=== PATIENT | female | born 1965 | race Asian ===

== ENCOUNTER 2016-04-27 07:55 | Emergency (ER) | payer OTHER ==
[2016-04-27 08:02] VITALS: TEMP 97.4; BMI 23.3
--- NOTE | 2016-04-27 08:21 | PDOC ---
History of Present Illness - General Chief Complaint: Lightheaded Stated Complaint: DIZZINESS Time Seen by Provider: 04/27/16 08:00 - History of Present Illness Initial Comments: 04/27/16 09:02 51 old female with a past medical history of asthma, chronic anemia-iron deficiency, and prior hepatitis B, with viral cure Patient has had a few weeks of intermittent nausea and malaise, as well as some lightheadedness off and on, which she says is worse after she eats She did see her primary care physician, Dr. Trevino, last week, and had lab work showing mild microcytosis, iron deficiency, and otherwise normal lab work She also had a right upper quadrant ultrasound last week, showing a normal liver , a normal pancreas, and a normal gallbladder Her urine was also normal She says that she has seen her safety counselor, as well as her primary care physician, and her CONTRACTS MANAGER She is perimenopausal, but still menstruating Today, she awakened with vertigo, and nausea She states that this was associated with a few second episode of palpitations She states that she felt like the room was spinning, and she had to sit back down She states that she is feeling better at this time but still with a little bit of vertigo She denies any vomiting or diarrhea She denies any shortness of breath She denies any recent travel, and does not take hormone supplements or OCPs She denies any recent head injury She denies any recent intercurrent illnesses, fevers, or chills She denies any earache She denies any other complaints at this time, and the remainder of the review of systems is negative Past History - Past Medical History Allergies/Adverse Reactions: Allergies Allergy/AdvReac Type Severity Reaction Status Date / Time Penicillins Allergy Hives Verified 04/27/16 07:56 Home Medications: Ambulatory Orders Albuterol Sulfate Inhaler - [Ventolin HFA Inhaler -] 2 inh IH QID 01/05/12 Montelukast Na [Singulair -] 0 mg PO HS 01/05/12 Salmeterol/Fluticasone [Advair 100Mg/50Mg] 0 disk.w IH BID 01/05/12 Cholecalciferol (Vitamin D3) [Vitamin D3] 5,000 unit PO DAILY capsule 08/18/15 Ferrous Gluconate [Iron] 256 mg PO TID #90 tablet 04/27/16 Meclizine HCl [Antivert -] 25 mg PO TID #21 tablet 04/27/16 Asthma: Yes - Psycho/Social/Smoking Cessation Hx Anxiety: No Suicidal Ideation: No Smoking Status: No Smoking History: Never smoked Have you smoked in the past 12 months: No Number of Cigarettes Smoked Daily: 0 Information on smoking cessation initiated: No Hx Alcohol Use: No Drug/Substance Use Hx: No Substance Use Type: None Hx Substance Use Treatment: No Review of Systems - Review of Systems Able to Perform ROS?: Yes Comments:: 04/27/16 09:05 12 point review of systems is as per history of present illness and otherwise negative *Physical Exam - Vital Signs Last Vital Signs Temp Pulse Resp BP Pulse Ox 97.4 F L 59 L 18 104/54 100 04/27/16 07:56 04/27/16 07:56 04/27/16 07:56 04/27/16 07:56 04/27/16 07:56 - Physical Exam Comments: 04/27/16 09:06 Physical exam Last Vital Signs Temp Pulse Resp BP Pulse Ox 97.4 F L 65 18 104/54 99 04/27/16 07:56 04/27/16 08:50 04/27/16 08:50 04/27/16 07:56 04/27/16 08:50 GENERAL: The patient is awake, alert, and fully oriented, and in no apparent distress. HEAD: Normal with no signs of trauma. EYES: Pupils equal, round and reactive to light, extraocular movements intact, sclera anicteric, conjunctiva are normal. No nystagmus is noted at this time ENT: The TMs are obscured by cerumen bilaterally, nares patent, oropharynx clear without exudates. Moist mucous membranes. NECK: Normal range of motion, supple without lymphadenopathy, JVD, or masses. Rapid change in head position does not induce the symptoms at this time LUNGS: Breath sounds equal, clear to auscultation bilaterally. No wheezes, and no crackles. HEART: Regular rate and rhythm, normal S1 and S2 without murmur, rub or gallop. ABDOMEN: Soft, nontender, normoactive bowel sounds. No guarding, no rebound. No masses appreciated. EXTREMITIES: Normal range of motion, no edema. No clubbing or cyanosis. No cords, erythema, or tenderness. NEURO: Mental status: The patient is oriented x3. Cranial nerves: Cranial nerves II through XII are intact Motor: The upper extremities are 5 over 5 in all muscle groups. The lower extremities are 5 over 5 in all muscle groups. Sensation: Sensation is intact to light touch throughout. Cerebellar: Qhjxpl-zwlaox-gnny is normal in both upper extremities. Heel-knee- kiran is normal in both lower extremities. Gait: Normal. PSYCH: Normal mood, normal affect. SKIN: Warm, Dry, normal turgor, no rashes or lesions noted. ED Treatment Course - LABORATORY CBC & Chemistry Diagram: 04/27/16 08:48 04/27/16 08:48 Medical Decision Making - Medical Decision Making 04/27/16 08:21 EKG Normal sinus rhythm 59, normal axis Normal AV and IV conduction time Normal QTC Some movement artifact is noted Nonspecific ST-T waves when compared to the EKG of 09/08/12 Today's EKG is unchanged from the prior EKG 04/27/16 09:07 51-year-old female with a few weeks of vague recent symptoms, who has seen her primary care doctor and had an initial workup, Presents with new onset vertigo this morning, which is now just about gone SHe states that her mother gets vertigo quite a bit, but she has never had it herself 04/27/16 11:23 Laboratory Results - last 24 hr 04/27/16 04/27/16 04/27/16 08:40 08:48 08:48 WBC 5.4 RBC 4.45 Hgb 10.4 L Hct 33.4 MCV 75.1 L MCHC 31.3 L RDW 16.9 H Plt Count 314 MPV 7.9 Sodium 138 Potassium 3.7 Chloride 109 H Carbon Dioxide 22 Anion Gap 7 L BUN 9 D Creatinine 0.6 Creat Clearance w eGFR > 60 Random Glucose 90 Calcium 8.3 L Magnesium 2.1 Total Bilirubin < 0.3 AST 27 ALT 21 Alkaline Phosphatase 57 Creatine Kinase 82 Troponin I < 0.03 L Total Protein 6.2 L Albumin 3.4 L TSH Urine HCG, Qual 04/27/16 04/27/16 09:11 Unknown WBC RBC Hgb Hct MCV MCHC RDW Plt Count MPV Sodium Potassium Chloride Carbon Dioxide Anion Gap BUN Creatinine Creat Clearance w eGFR Random Glucose Calcium Magnesium Total Bilirubin AST ALT Alkaline Phosphatase Creatine Kinase Troponin I Total Protein Albumin TSH 0.46 D Urine HCG, Qual Negative 04/27/16 11:29 pt is a little more anemic than her prior lab work, but has not been taking her iron 04/27/16 11:37 Feeling much better after 1 L of normal saline and meclizine I spoke with the patient and stressed the importance of taking her iron, as she is becoming more anemic Case and all results discussed with Dr. Valdez, for Dr. Trevino Agrees with above-will follow up *DC/Admit/Observation/Transfer Diagnosis at time of Disposition: Vertigo, Anemia, Weakness - Discharge Dispostion Disposition: HOME Condition at time of disposition: Improved - Referrals Referrals: Riley Lopez MD [Staff Physician] - - Patient Instructions Printed Discharge Instructions: Vertigo, DI for Vertigo, Iron-Deficiency Anemia Additional Instructions: Antivert (meclizine)-one pill every 8 hours for the next few days Please take your iron pill at least once or twice a day, as you are becoming more anemic Increase fluid intake and rest Followup with your primary care physician in 24-48 hours Return immediately if you worsen in any way Take your medications as directed - Post Discharge Activity Work/School Note: Back to Work
[2016-04-27 09:00] LABS: MCH 23.5 pg (25.7-33.7); MCHC 31.3 g/dl (32.0-36.0); MEAN CELL VOLUME 75.1 fl (80-96); MEAN PLT VOLUME 7.9 fl (7.5-11.1); PLATELET COUNT 314 K/MM3 (134-434); RDW 16.9 % (11.6-15.6); WHITE BLOOD COUNT 5.4 K/mm3 (4.0-10.0)
[2016-04-27] MEDS ORDERED: MECLIZINE HCL 25 MG TABLET (FP) PO ONE (09:09)
[2016-04-27 09:19] LABS: CPK(DFH) 82 IU/L (26-140)
[2016-04-27 09:20] LABS: ALBUMIN 3.4 g/dl (3.5-5.0); ALK PHOS 57 U/L (32-92); ANION GAP 7 (8-16); CALCIUM 8.3 mg/dl (8.4-10.2); CO2 22 mmol/L (22-28); CREATININE 0.6 mg/dl (0.6-1.3); GLUCOSE,RANDOM 90 mg/dl (74-106); MAGNESIUM 2.1 mg/dL (1.8-2.4); SGOT/AST 27 U/L (10-42); SGPT/ALT 21 U/L (10-40); TOT PROT 6.2 g/dl (6.4-8.3)
[2016-04-27] MEDS ORDERED: MECLIZINE HCL 25 MG TABLET (FP) ONE (09:20)
[2016-04-27 09:24] LABS: BILIRUBIN,TOTAL < 0.3 mg/dl (0.2-1.0)
[2016-04-27] MEDS ORDERED: SODIUM CHLORIDE 1,000 ML IV SCH (10:00)
[2016-04-27 11:03] LABS: TROPONIN I (DFP) < 0.03 ng/ml (0.03-0.50)
--- NOTE | 2016-04-27 11:32 | EKG ---
Test Reason : Blood Pressure : / mmHG Vent. Rate : 059 BPM Atrial Rate : 059 BPM P-R Int : 172 ms QRS Dur : 076 ms QT Int : 436 ms P-R-T Axes : 073 060 058 degrees QTc Int : 431 ms SINUS BRADYCARDIA NONSPECIFIC T WAVE ABNORMALITY ABNORMAL ECG NO PREVIOUS ECGS AVAILABLE Confirmed by KOFFI HADLEY, ANDRES ([id number]) on 04/27/2016 11:32:27 AM Referred By: GRAYSON Confirmed By:ANDRES RAIN MD
[2016-04-27 11:41] VITALS: BP 108/59; PULSE 64
== END 2016-04-27 11:57 | disposition home or self-care (01) ==
LOC: FER 07:55
DX: R42 Dizziness and giddiness (principal); R53.1 Weakness; D50.9 Iron deficiency anemia, unspecified; B19.10 Unspecified viral hepatitis B without hepatic coma; J45.909 Unspecified asthma, uncomplicated
CPT/HCPCS: 36415; 80053; 82550; 83735; 84443; 84484; 84703; 85027; 93005; 99284-25

== ENCOUNTER 2016-05-04 08:11 | Day surgery (SDC) | payer OTHER ==
[2016-05-02 12:29] VITALS: BMI 23.3
[2016-05-04] MEDS ORDERED: PROPOFOL 20 ML ONE ×2 (09:45)
[2016-05-04] MEDS ORDERED: MIDAZOLAM HCL 2 MG/2 ML SINGLE DOSE VIAL ONE (09:45)
[2016-05-04] MEDS ORDERED: BUPIVACAINE HCL/EPINEPHRINE/PF 30 ML VIAL IJ ONE (10:04)
--- NOTE | 2016-05-04 11:06 | OP ---
Operative Note - Note: Operative Date: 05/04/16 Pre-Operative Diagnosis: right knee trochlea cartilage defect, MMT Operation: RKA, PMM, microfrature-femoral trochlea Post-Operative Diagnosis: Same as Pre-op Surgeon: Raj Khan Anesthesiologist/FINANCIAL OPERATIONS CLERK: Robert Harrell Anesthesia: General Operative Report Dictated: Yes
--- NOTE | 2016-05-04 11:07 | DS ---
Physical Examination Vital Signs: Vital Signs Temperature 97.7 F 05/04/16 08:33 Pulse Rate 81 05/04/16 08:33 Respiratory Rate 18 05/04/16 08:33 Blood Pressure 89/56 05/04/16 08:33 O2 Sat by Pulse Oximetry (%) 99 05/04/16 08:33 Discharge Summary Reason For Visit: OSTEOCHONDRAL DEFECT CHONDROMALACIA PATELLA RT KN Condition: Good - Instructions Diet, Activity, Other Instructions: Post Operative Instructions: Knee Arthroscopy Dr Raj Khan 1. Pain following an arthroscopy is variable. Some patients will have more pain than others. You have been provided with a prescription for medication that contains a narcotic. You are not allowed to drive while on this medication. You should NOT take Tylenol (Acetaminophen) when taking the pain medication ( it will result in an overdose). Feel free to take medications such as Ibuprofen or Naprosyn in addition to the pain medicine if you do not have any problems with the NSAID class of medications. 2. You should are allowed to remove the bandages and shower in 24 hours unless directed otherwise. You are not allowed to bathe or go swimming until the sutures are removed. Put band-aids on the sutures after your shower and do not put any creams or lotions over the incisions. 3. You are allowed to put all your weight on the leg and bend your knee, unless directed otherwise. 4. Apply ice to the knee for 15 min every hour or so. You may continue this for as many days as you like. 5. Please call the office to schedule a visit to have your sutures removed. 6. If for any reason you believe you may have an infection or are concerned, please feel free to call me. I can be reached through our office number 24 hours a day. 7. Please call our office with any questions; we will review the surgical findings during your post operative visit. Disposition: HOME - Home Medications Comprehensive Discharge Medication List: Ambulatory Orders Albuterol Sulfate Inhaler - [Ventolin Hfa Inhaler -] 2 inh PO Q6H PRN 05/02/16 Ascorbic Acid [Vitamin C -] 500 mg PO DAILY 05/02/16 Azelastine HCl 137 mcg NS PRN PRN 05/02/16 Cholecalciferol (Vitamin D3) [Vitamin D3] 2,000 unit PO DAILY 05/02/16 Evening [place] Oil [Evening [place]] 1,000 mg PO DAILY 05/02/16 Ferrous Gluconate [Fergon -] 324 mg PO TID 05/02/16 Fluticasone Prop 0.05% Nasal [Flonase -] 1 - 2 spray NS DAILY PRN 05/02/16 Montelukast Na [Singulair -] 10 mg PO HS 05/02/16 Multivitamins [Tab-A-Vit -] 1 tab PO DAILY 05/02/16 [place]-3/Dha/Epa/Fish Oil [[place] 3 500 Softgel] 1 each PO DAILY 05/02/16 Salmeterol/Fluticasone [Advair 100Mcg/50Mcg -] 1 inh IH BID 05/02/16 Vit C/Vit E/Lutein/Min/[place]-3 [Ocuvite Softgel] 1 each PO DAILY 05/02/16
[2016-05-04] MEDS ORDERED: oxyCODONE HCL 5 MG TABLET PO PRN ×2 (12:00)
[2016-05-04] MEDS ORDERED: LACTATED RINGERS SOLUTION 1,000 ML IV SCH (12:00)
[2016-05-04 12:10] VITALS: TEMP 97.5
[2016-05-04] MEDS ORDERED: PROMETHAZINE HCL 25 MG/1 ML VIAL ONE (12:32)
[2016-05-04] MEDS ORDERED: ONDANSETRON 4 MG/2 ML VIAL IVPUSH PRN (12:45)
[2016-05-04] MEDS ORDERED: PROMETHAZINE HCL 25 MG/1 ML VIAL IVPUSH ONE (13:00)
[2016-05-04 14:24] VITALS: BP 98/52; PULSE 58
--- NOTE | 2016-05-09 13:39 | PATH ---
Surgical Pathology Report Patient Name: SADE MELVIN [facility]. Rec. #: [id number] /Age/Gender: 1965 (Age: 51) / F Account: [id number] Location: [facility] AMBULATORY Taken: 05/04/2016 Received: 05/04/2016 Reported: 05/09/2016 Physicians: Raj Khan M.D. Specimen(s) Received RIGHT KNEE SHAVINGS Clinical History Osteochondral defect chondromalacia patella right knee Surgical procedure: Right knee arthroscopy, microfracture and pigmented villonodular synovitis excised Final Diagnosis KNEE, RIGHT, ARTHROSCOPIC SHAVINGS: FIBROSYNOVIAL TISSUE SHOWING CHRONIC INFLAMMATION AND REACTIVE CHANGES. (SEE NOTE) FRAGMENTS OF CARTILAGE. Note: No evidence of pigmented villonodular synovitis in this material. Electronically Signed Janis James M.D. Gross Description Received in formalin, labeled "right knee shavings," is a 2.4 x 2.0 x 0.3 cm. aggregate of dee-yellow soft tissue fragments. Entirely submitted in two cassettes. 05/04/201605/04/2016
== END 2016-05-04 14:35 | disposition home or self-care (01) ==
LOC: FASU 08:11 → MERGE 08:11 → FASU 14:35
PROVIDERS: ATTEND Orthopaedic Surgery
PROC: 0SBC4ZZ Excision of Right Knee Joint, Percutaneous Endoscopic Approach (ICD-10-PCS; principal; 2016-05-04 10:34)
DX: M94.8X8 Other specified disorders of cartilage, other site (principal); M65.88 Other synovitis and tenosynovitis, other site
CPT/HCPCS: 84703; 88304-TC; 94760

== ENCOUNTER 2016-08-10 22:45 | Emergency (ER) | payer OTHER ==
[2016-08-10 22:51] VITALS: BP 122/66; PULSE 63; TEMP 97.9; BMI 23.8
--- NOTE | 2016-08-10 23:22 | PDOC ---
History of Present Illness - General Chief Complaint: Pain Stated Complaint: PAIN Time Seen by Provider: 08/10/16 23:09 History Source: Patient Exam Limitations: No Limitations - History of Present Illness Initial Comments: 08/10/16 23:48 This is a 51-year-old female who is status post tooth extraction approximately 4 days ago. 2 days post tooth extraction patient developed pain in the area of where the tooth was extracted. Patient said she's had progressive pain now times the last 2 days. Patient is taking ibuprofen without relief. Patient did not follow up with her doctor. Patient is concerned that there may be an infection. PAST MEDICAL HISTORY: no significant history PAST SURGICAL HISTORY: no significant history FAMILY HISTORY: no pertinant history SOCIAL HISTORY: Pt lives with family and is employed. MEDICATIONS: reviewed ALLERGIES: As per nursing notes Review of Systems General: No fevers or chills, no weakness, no weight loss HEENT: No change in vision. No sore throat,. No ear pain, plus tooth pain CardioVascular: No chest pain or shortness of breath Respiratory:No cough, or wheezing. Gastrointestinal: no nausea, vomitting, diarrhea or constipation, No rectal bleeding Genitourinary: No dysuria, hematuria, or frequency Musculoskeletal: No joint or muscle pain or swelling Neurologic: No headache, vertigo, dizziness or loss of consciousness Psychiatric: nor depression Skin: No rashes or easy bruising Endocrine: no increased thirst or abnormal weight change Allergic: no skin or latex allergy All other systems reviewed and normal GENERAL: The patient is awake, alert, and fully oriented, in no acute distress. HEAD: Normal with no signs of trauma. Mouth: In the area where there was a extraction the clot has been dislodged and patient appears to have a dry socket There is no erythema to the surrounding area swelling or tenderness. There is no lymphadenopathy EYES: Pupils equal, round and reactive to light, extraocular movements intact, sclera anicteric, conjunctiva clear. EXTREMITIES: Normal range of motion, no edema. NEUROLOGICAL: Normal speech, normal gait. PSYCH: Normal mood, normal affect. SKIN: Warm, Dry, normal turgor, no rashes or lesions noted. Assessment and plan: Patient was given a shot of Toradol for the pain. We do not have a dental kit here and any dental paste that I can ask the extraction cavity with. So patient was given a prescription for Percocet and will follow-up with her dentist on Saturday. Past History - Past Medical History Allergies/Adverse Reactions: Allergies Allergy/AdvReac Type Severity Reaction Status Date / Time avocado Allergy Severe MOUTH Verified 05/02/16 13:01 ITCHING,STOMACH DISTRESS latex Allergy Severe MOUTH Verified 05/02/16 12:31 ITCHING, STOMACH DISTRESS, melon Allergy Severe MOUTH Verified 05/02/16 12:32 ITCHING, STOMACH DISTRESS Penicillins Allergy Hives Verified 04/27/16 07:56 Home Medications: Ambulatory Orders Albuterol Sulfate Inhaler - [Ventolin Hfa Inhaler -] 2 inh PO Q6H PRN 05/02/16 Ascorbic Acid [Vitamin C -] 500 mg PO DAILY 05/02/16 Azelastine HCl 137 mcg NS PRN PRN 05/02/16 Cholecalciferol (Vitamin D3) [Vitamin D3] 2,000 unit PO DAILY 05/02/16 Evening Fil[place] Oil [Evening Filion] 1,000 mg PO DAILY 05/02/16 Fluticasone Prop 0.05% Nasal [Flonase -] 1 - 2 spray NS DAILY PRN 05/02/16 Montelukast Na [Singulair -] 10 mg PO HS 05/02/16 Multivitamins [Tab-A-Vit -] 1 tab PO DAILY 05/02/16 [place]-3/Dha/Epa/Fish Oil [[place] 3 500 Softgel] 1 each PO DAILY 05/02/16 Vit C/Vit E/Lutein/Min/[place]-3 [Ocuvite Softgel] 1 each PO DAILY 05/02/16 Clindamycin 08/10/16 Ondansetron [Zofran Odt -] 4 mg SL TID PRN #6 od.tablet 08/10/16 Oxycodone HCl/Acetaminophen [Percocet 5-325 mg Tablet] 1 tab PO Q4H #10 tablet MDD 6 08/10/16 Anemia: Yes (ON IRON CURRENTLY) Asthma: Yes (DX TEEN-SEASAONAL,URI & EXCERCISE INDUCED) Cancer: No Cardiac Disorders: No CVA: No COPD: No CHF: No Dementia: No Diabetes: No GI Disorders: No Disorders: No HTN: No Hypercholesterolemia: No Liver Disease: Yes (HEPATITIS B- DX 2000- RESOLVED) Seizures: No Thyroid Disease: No - Surgical History Abdominal Surgery: Yes (C- SECTION) Appendectomy: No Cardiac Surgery: No Cholecystectomy: No Lung Surgery: No Neurologic Surgery: No Orthopedic Surgery: No - Psycho/Social/Smoking Cessation Hx Anxiety: No Suicidal Ideation: No Smoking Status: No Smoking History: Never smoked Have you smoked in the past 12 months: No Number of Cigarettes Smoked Daily: 0 Hx Alcohol Use: No Drug/Substance Use Hx: No Substance Use Type: None Hx Substance Use Treatment: No *Physical Exam - Vital Signs Last Vital Signs Temp Pulse Resp BP Pulse Ox 97.9 F 63 16 122/66 100 08/10/16 22:49 08/10/16 22:49 08/10/16 22:49 08/10/16 22:49 08/10/16 22:49 *DC/Admit/Observation/Transfer Diagnosis at time of Disposition: Alveolar osteitis - Discharge Dispostion Disposition: HOME Condition at time of disposition: Stable Admit: No - Prescriptions Prescriptions: Oxycodone HCl/Acetaminophen [Percocet 5-325 mg Tablet] 1 tab PO Q4H #10 tablet MDD 6 Ondansetron [Zofran Odt -] 4 mg SL TID PRN #6 od.tablet PRN Reason: Nausea - Referrals Referrals: Riley Lopez MD [Primary Care Provider] - - Patient Instructions Additional Instructions: Continue to take ibuprofen or Tylenol as needed for the pain. If he needs something stronger you can take Percocet one tablet as often as every 4-6 hours. If you develop some nausea with it takes Zofran 1 tablet as often as 3 times a day as needed for nausea call your dentist Saturday morning if he still or having any pain and follow-up with your dentist. Return to the emergency department immediately with ANY new, persistent or worsening symptoms. Continue any medications as previously prescribed by your physician. You should follow up with your primary doctor as soon as possible regarding today's emergency department visit. . Please make sure your doctor reviews the results of your emergency evaluation. Thank you for coming to the Emergency Department today for your care. It was a pleasure to see you today. Please note that your evaluation is INCOMPLETE until you follow-up with your doctor.
[2016-08-10] MEDS ORDERED: KETOROLAC TROMETHAMINE 60 MG/2 ML VIAL IM ONE (23:28)
[2016-08-10] MEDS ORDERED: KETOROLAC TROMETHAMINE 60 MG/2 ML VIAL ONE (23:29)
== END 2016-08-10 23:33 | disposition home or self-care (01) ==
LOC: FER 22:45
PROC: 3E0233Z Introduction of Anti-inflammatory into Muscle, Percutaneous Approach (ICD-10-PCS; principal; 2016-08-10)
DX: M27.3 Alveolitis of jaws (principal); J45.909 Unspecified asthma, uncomplicated; B19.10 Unspecified viral hepatitis B without hepatic coma
CPT/HCPCS: 96372; 99281-25

== ENCOUNTER 2016-10-18 06:55 | Day surgery (SDC) | payer OTHER ==
[2016-10-15 15:05] VITALS: BMI 24.7
[2016-10-18] MEDS ORDERED: PROPOFOL 20 ML ONE (07:02)
[2016-10-18] MEDS ORDERED: LIDOCAINE HCL/PF 2% SDV 5ML VIAL ONE (07:09)
[2016-10-18 07:18] VITALS: TEMP 97.7
[2016-10-18 09:11] VITALS: BP 95/53; PULSE 66
--- NOTE | 2016-10-23 16:30 | PATH ---
Surgical Pathology Report Patient Name: SADE HOLLAND [facility]. Rec. #: [id number] /Age/Gender: 1965 (Age: 51) / F Account: [id number] Location: [facility]-ENDOSCOPY Taken: 10/18/2016 Received: 10/18/2016 Reported: 10/23/2016 Physicians: Saurabh Gonsalves M.D. Specimen(s) Received A: BX DUODENUM B: BX ANTRUM C: GASTRIC POLYP Clinical History Anemia Iron deficiency anemia, gastritis, gastric polyp Final Diagnosis A. DUODENUM, BIOPSY: DUODENAL MUCOSA WITH NO PATHOLOGIC FINDINGS. B. ANTRUM, BIOPSY: MILD CHRONIC GASTRITIS. IMMUNOSTAIN IS NEGATIVE FOR H. PYLORI ORGANISMS. C. GASTRIC POLYP, BIOPSY: GASTRIC FUNDIC GLAND POLYP. IMMUNOSTAIN IS NEGATIVE FOR H PYLORI ORGANISMS. Electronically Signed Janis James M.D. Gross Description A. Received in formalin, labeled "duodenum" are 3 dee, irregular portions of soft tissue ranging from 0.3-0.4 cm. in greatest dimension. The specimens are submitted in toto in one cassette. B. Received in formalin, labeled "antrum" are 2 dee, irregular portions of soft tissue averaging 0.3 cm. in greatest dimension. The specimens are submitted in toto in one cassette. C. Received in formalin, labeled "gastric polyp" are 2 dee, irregular portions of soft tissue measuring 0.3 and 0.5 cm. in greatest dimension. The specimens are submitted in toto in one cassette. 10/19/2016 saudi10/19/2016
== END 2016-10-18 09:30 | disposition home or self-care (01) ==
LOC: FASU-ENDO 06:55
PROVIDERS: ATTEND Internal Medicine Gastroenterology
PROC: 0DB98ZX Excision of Duodenum, Via Natural or Artificial Opening Endoscopic, Diagnostic (ICD-10-PCS; principal; 2016-10-18 08:34)
PROC: 0DB68ZX Excision of Stomach, Via Natural or Artificial Opening Endoscopic, Diagnostic (ICD-10-PCS; 2016-10-18 08:34)
DX: D50.9 Iron deficiency anemia, unspecified (principal); K29.50 Unspecified chronic gastritis without bleeding; K31.7 Polyp of stomach and duodenum
CPT/HCPCS: 84703; 88305-TC; 88342-TC